=== PATIENT | male | born 1970 | race Hispanic/Latino ===

== ENCOUNTER → 2023-09-11 | Outpatient (CLI) | payer OTHER ==
[~2023-09-11] MED LIST: ALBUTEROL 0.083% 2.5 MG/3 ML INH IH ONE
== END | disposition home or self-care (01) ==
LOC: RESP 12:46
PROVIDERS: ATTEND Chiropractor
DX: J45.998 Other asthma (principal); R06.02 Shortness of breath; Z20.822 Contact with and (suspected) exposure to COVID-19; R06.09 Other forms of dyspnea
CPT/HCPCS: 94060